=== PATIENT | female | born 1975 | race African-American/Black ===

== ENCOUNTER 2016-03-10 10:49 | Emergency (ER) | payer MEDICAID ==
[2016-03-10 11:14] VITALS: BP 126/76; PULSE 87; TEMP 98.1; BMI 29.4
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
[2016-03-10 12:02] LABS: AUTOMATED BASOPHIL 0.9 % (0-2); AUTOMATED MONOCYTE 15.2 % (3-10); AUTOMATED NEUTROPHIL 53.9 % (45-76); MPV 8.1 fL (7.4-10.4)
[2016-03-10 12:03] LABS: ALL NEG? YES; MDMA* NEG (NEGATIVE); METHAMPHETAMINES NEG (NEGATIVE); OXYCODONE NEG (NEGATIVE)
[2016-03-10 12:14] LABS: BLOOD UREA NITROGEN 9 MG/DL (7-17); CALCIUM 9.6 MG/DL (8.4-10.2); CALCULATED OSMOLALITY 265 MOs/Kg (270-290); CHLORIDE 101 mEq/L (98-107); ETOH-MGDL < 10 mg/dL; GLUCOSE 96 MG/DL (70-99); SODIUM LEVEL 138 mEq/L (137-146); TOTAL PROTEIN 8.5 G/DL (6.3-8.2)
[2016-03-10 12:18] LABS: RBC/URINE 0-2 (0-5); WBC/URINE 0-2 (0-5)
[2016-03-10 12:21] LABS: LEUKOCYTES/URINE NEG (NEGATIVE); NITRITE/URINE NEG (NEGATIVE); URINE OCCULT BLOOD NEG (NEG/TRACE)
== END 2016-03-10 12:37 | disposition home or self-care (01) ==
LOC: EDMC 10:49 → EEVIPCON 10:49 → EDMC 12:37
DX: F20.0 Paranoid schizophrenia (principal)
CPT/HCPCS: 36415; 80053; 80307; 81001; 81025; 85025; 86592; 99282

== ENCOUNTER 2016-04-03 10:29 | Emergency (ER) | payer MEDICAID ==
[2016-04-03 10:50] VITALS: BP 127/87; PULSE 95; TEMP 98.5; BMI 29.7
== END 2016-04-03 10:55 | disposition left against medical advice (07) ==
LOC: ED 10:29
DX: M54.2 Cervicalgia (principal)
CPT/HCPCS: 99281